=== PATIENT | female | born 1980 | race Caucasian/White ===

== ENCOUNTER 2016-11-11 08:13 | Emergency (ER) | payer SELFPAY ==
[~2016-11-11 08:13] MED LIST: FAMO-63 PO; HYDR25TA PO; PRED50TA PO
[2016-11-11] MEDS ORDERED: KETOROLAC TROMETHAMINE 30 MG/ML INJ. IV ONE (08:45)
[2016-11-11] MEDS ORDERED: IV NORMAL SALINE 1000ML BAG 1,000 ML IV ONE (08:45)
[2016-11-11] MEDS ORDERED: PROCHLORPERAZINE 10 MG/2 ML VIAL. IV ONE (08:45)
--- NOTE | 2016-11-11 08:46 | PHYS DOC ---
Past Medical History Past Medical History: Anxiety, Depression Past Surgical History: Tubal ligation Additional Past Surgical Histo: Anal Fissure, Bx Bunion Alcohol Use: None Drug Use: None Adult General Chief Complaint Chief Complaint: santamaria,n,v HPI HPI Patient is a 36 year old female who presents with multiple complaints. She had a headache develop yesterday morning while she was at home making breakfast for her child. The last time she had a headache like this was 6 months ago and did not require coming to the hospital. She states her headaches normally resolve with ibuprofen, she did not take any ibuprofen because she was "too tired and sick to move". She's also had nausea and vomiting but denies any abdominal pain, dysuria or change in bowel movements. No fevers reported. She does not see a primary care physician. She reports substernal chest pain yesterday that resolved without intervention. Nonradiating. Review of Systems Review of Systems Constitutional: Denies fever or chills [] Eyes: Denies change in visual acuity, redness, or eye pain [] HENT: Denies nasal congestion or sore throat [] Respiratory: Denies cough or shortness of breath [] Cardiovascular: Reports episode of chest pain yesterday. GI: Denies abdominal pain,bloody stools or diarrhea [] : Denies dysuria or hematuria [] Musculoskeletal: Denies back pain or joint pain [] Integument: Denies rash or skin lesions [] Neurologic: reports headache, denies focal weakness or sensory changes [] Current Medications Current Medications Current Medications Medications (Trade) Dose Ordered Sig/Alexander Start Time Stop Time Status Last Admin Dose Admin Ketorolac Tromethamine (Toradol) 30 mg 1X ONCE 11/11/16 08:45 11/11/16 08:46 DC 11/11/16 09:05 30 MG Potassium Chloride (Klor-Con) 40 meq 1X ONCE 11/11/16 10:00 11/11/16 10:01 DC 11/11/16 10:37 40 MEQ Prochlorperazine Edisylate (Compazine) 10 mg 1X ONCE 11/11/16 08:45 11/11/16 08:46 DC 11/11/16 09:03 10 MG Sodium Chloride 1,000 ml @ 1,000 mls/hr 1X ONCE 11/11/16 08:45 11/11/16 09:44 DC 11/11/16 08:51 1,000 MLS/HR Allergies Allergies Allergies Coded Allergies Type Severity Reaction Last Updated Verified acetaminophen Allergy Intermediate 03/22/15 Yes diphenhydramine Allergy Intermediate 03/22/15 Yes Physical Exam Physical Exam Constitutional: Well developed, well nourished, ill appearing, non-toxic appearance. [] HENT: Normocephalic, atraumatic, bilateral external ears normal, oropharynx dry , no oral exudates, nose normal. [] Eyes: PERRLA, EOMI, conjunctiva normal, no discharge. [] Neck: Normal range of motion, no tenderness, supple, no stridor, no meningismus Cardiovascular:Heart rate regular with regular rhythm, no murmur [] Lungs & Thorax: Bilateral breath sounds clear to auscultation , no wheeze, crackles or rhonchi Abdomen: Bowel sounds normal, soft, no tenderness, no masses, no pulsatile masses. [] Skin: Warm, dry, no erythema, no rash. [] Back: No tenderness, no CVA tenderness. [] Extremities: No tenderness, no cyanosis, no clubbing, ROM intact, no edema. [] Neurologic: Alert and oriented X 3, normal motor function, normal sensory function, no focal deficits noted, CN II-XII intact Psychologic: flat affect, judgement normal, mood normal. [] Current Patient Data Vital Signs Vital Signs Date Time Temp Pulse Resp B/P (MAP) Pulse Ox O2 Delivery O2 Flow Rate FiO2 11/11/16 10:36 96 20 115/78 (90) 96 Room Air 11/11/16 08:30 98.4 98.4 Lab Values Laboratory Tests Test 11/11/16 08:00 11/11/16 08:25 11/11/16 08:45 POC Urine HCG, Qualitative Hcg negative (Negative) Urine Collection Type Unknown Urine Color Faye Urine Clarity Cloudy Urine pH 6.0 Urine Specific [place] >=1.030 Urine Protein 30 mg/dL (NEG-TRACE) Urine Glucose (UA) Negative mg/dL (NEG) Urine Ketones (Stick) Trace mg/dL (NEG) Urine Blood Negative (NEG) Urine Nitrite Negative (NEG) Urine Bilirubin Small (NEG) Urine Urobilinogen Dipstick 1.0 mg/dL (0.2 mg/dL) Urine Leukocyte Esterase Small (NEG) Urine RBC 0 /HPF (0-2) Urine WBC 11-20 /HPF (0-4) Urine Squamous Epithelial Cells Many /LPF Urine Bacteria Few /HPF (0-FEW) Urine Mucus Marked /LPF White Blood Count 4.9 x10^3/uL (4.0-11.0) Red Blood Count 4.80 x10^6/uL (3.50-5.40) Hemoglobin 14.5 g/dL (12.0-15.5) Hematocrit 40.9 % (36.0-47.0) Mean Corpuscular Volume 85 fL (79-100) Mean Corpuscular Hemoglobin 30 pg (25-35) Mean Corpuscular Hemoglobin Concent 35 g/dL (31-37) Red Cell Distribution Width 12.5 % (11.5-14.5) Platelet Count 231 x10^3/uL (140-400) Neutrophils (%) (Auto) 71 % (31-73) Lymphocytes (%) (Auto) 18 % (24-48) L Monocytes (%) (Auto) 11 % (0-9) H Eosinophils (%) (Auto) 0 % (0-3) Basophils (%) (Auto) 0 % (0-3) Neutrophils # (Auto) 3.5 x10^3uL (1.8-7.7) Lymphocytes # (Auto) 0.9 x10^3/uL (1.0-4.8) L Monocytes # (Auto) 0.5 x10^3/uL (0.0-1.1) Eosinophils # (Auto) 0.0 x10^3/uL (0.0-0.7) Basophils # (Auto) 0.0 x10^3/uL (0.0-0.2) Sodium Level 140 mmol/L (136-145) Potassium Level 3.1 mmol/L (3.5-5.1) L Chloride Level 102 mmol/L (98-107) Carbon Dioxide Level 25 mmol/L (21-32) Anion Gap 13 (6-14) Blood Urea Nitrogen 10 mg/dL (7-20) Creatinine 0.8 mg/dL (0.6-1.0) Estimated GFR (Cockcroft-Gault) 80.3 BUN/Creatinine Ratio 13 (6-20) Glucose Level 120 mg/dL (70-99) H Calcium Level 9.0 mg/dL (8.5-10.1) Total Bilirubin 0.4 mg/dL (0.2-1.0) Aspartate Amino Transferase (AST) 15 U/L (15-37) Alanine Aminotransferase (ALT) 17 U/L (14-59) Alkaline Phosphatase 103 U/L (46-116) Troponin I Quantitative < 0.017 ng/mL (0.000-0.055) Total Protein 7.3 g/dL (6.4-8.2) Albumin 3.8 g/dL (3.4-5.0) Albumin/Globulin Ratio 1.1 (1.0-1.7) Laboratory Tests 11/11/16 08:45 Laboratory Tests 11/11/16 08:45 EKG EKG 2 bpm, sinus, normal axis, normal intervals with the exception of QTC of 458, no ST elevation or depression, nonischemic T waves, interpreted by me [] Radiology/Procedures Radiology/Procedures CXR: IMPRESSION: No acute cardiopulmonary abnormality is detected. [] Course & Med Decision Making Course & Med Decision Making Pertinent Labs and Imaging studies reviewed. (See chart for details) Pt given IV fluids, compazine and toradol. Labs, EKG, chest XRay ordered. No acute findings on ED workup other than a urinary tract infection. Patient feeling improved. Discharged with Cipro, Zofran, ibuprofen. Return precautions given as well as referral sheet. Dragon Disclaimer Dragon Disclaimer This electronic medical record was generated, in whole or in part, using a voice recognition dictation system. Departure Departure Impression: Primary Impression: Headache Additional Impressions: Nausea and vomiting UTI (urinary tract infection) Disposition: 01 HOME, SELF-CARE Condition: IMPROVED Referrals: NO PCP (PCP) Scripts Ciprofloxacin Hcl (CIPRO) 250 Mg Tablet 1 TAB PO BID, #6 TAB Prov: SUE JAVED MD 11/11/16 Ondansetron (ZOFRAN ODT) 4 Mg Tab.rapdis 1 TAB SL Q8HRS Y for NAUSEA, #10 TAB Prov: SUE JAVED MD 11/11/16 Ibuprofen (IBUPROFEN) 800 Mg Tablet 800 MG PO PRN TID Y for PAIN, #20 TAB take with food or milk to avoid upsetting stomach Prov: SUE JAVED MD 11/11/16 Problem Qualifiers SUE JAVED MD November 11, 2016 08:46
--- NOTE | 2016-11-11 09:03 | EKG ---
[facility] [address] [place] [address] Test Date: 2016-11-11 Test Time: 09:00:31 Pat Name: SANJEEV OBRIEN Department: Room: Gender: F Communications Engineering Technician: MARIBEL : 1980 Requested By: SUE JAVED Order Number: [id number] Reading MD: Givoanny Fajardo Measurements Intervals [place] Rate: 92 P: 59 FL: 144 QRS: 15 QRSD: 94 T: 26 QT: 366 QTc: 458 Interpretive Statements SINUS RHYTHM Electronically Signed On 11-11-2016 10:55:41 CDT by Giovanny Fjaardo
[2016-11-11 09:08] LABS: BASO % 0 % (0-3); EOS % 0 % (0-3); HEMATOCRIT 40.9 % (36.0-47.0); HEMOGLOBIN 14.5 g/dL (12.0-15.5); LYMPH # 0.9 x10^3/uL (1.0-4.8); LYMPH % 18 % (24-48); MEAN CORPUSCULAR HEMOGLOBIN 30 pg (25-35); MEAN CORPUSCULAR HGB CONC 35 g/dL (31-37); MEAN CORPUSCULAR VOLUME 85 fL (79-100); MONO % 11 % (0-9); NEUT % 71 % (31-73); PLATELET COUNT 231 x10^3/uL (140-400); RED CELL DISTRIBUTION WIDTH 12.5 % (11.5-14.5); WHITE BLOOD COUNT 4.9 x10^3/uL (4.0-11.0)
[2016-11-11 09:16] LABS: CREATININE 0.8 mg/dL (0.6-1.0); GFR 80.3; POTASSIUM 3.1 mmol/L (3.5-5.1)
[2016-11-11 09:21] LABS: ALBUMIN 3.8 g/dL (3.4-5.0); ALBUMIN/GLOBULIN RATIO 1.1 (1.0-1.7); TOTAL BILIRUBIN 0.4 mg/dL (0.2-1.0); TOTAL PROTEIN 7.3 g/dL (6.4-8.2)
--- NOTE | 2016-11-11 09:25 | RAD ---
Portable chest, 11/11/2016: History: Chest pain The heart size and pulmonary vascularity are normal. A dense nodule in the left base is probably a granuloma. No acute infiltrates are seen. There is no evidence of pleural fluid. IMPRESSION: No acute cardiopulmonary abnormality is detected.
[2016-11-11 09:43] LABS: BILIRUBIN,URINE SMALL (NEG); GLUCOSE,URINE NEGATIVE (NEG); NITRITE,URINE NEGATIVE (NEG); PROTEIN,URINE 30 mg/dL (NEG-TRACE)
[2016-11-11] MEDS ORDERED: POTASSIUM CHLORIDE 20 MEQ TABLET.ER. PO ONE (10:00)
[2016-11-11 10:07] LABS: BACTERIA,URINE FEW /HPF (0-FEW); RBC,URINE 0 /HPF (0-2); SQUAMOUS EPITHELIAL CELL,UR MANY /LPF
[2016-11-11] MEDS ORDERED: CIPR250T30 PO (10:16)
[2016-11-11] MEDS ORDERED: IBUP-1060 PO (10:16)
[2016-11-11] MEDS ORDERED: ONDA4TAB10 SL (10:16)
[2016-11-11 10:36] VITALS: BP 115/78
== END 2016-11-11 10:47 | disposition home or self-care (01) ==
LOC: ER 09:08
DX: N39.0 Urinary tract infection, site not specified (principal); R11.2 Nausea with vomiting, unspecified; R51 Headache; Z88.6 Allergy status to analgesic agent; Z88.8 Allergy status to other drugs, medicaments and biological substances
CPT/HCPCS: 36415; 71010; 80053; 81001; 84484; 84703; 85027; 87086; 93005; 96361; 96374; 96375; 99285; J0780; J1885; J7030; 81025